=== PATIENT | female | born 1940 | race Caucasian/White ===

== ENCOUNTER 2017-04-11 07:06 | Day surgery (SDC) | payer OTHER, MEDICARE ==
[~2017-04-11] VITALS: Ht 157.5 cm; Wt 79.0 kg
[2017-04-11] VITALS (20 sets, daily range): BP systolic 96–168; BP diastolic 54–96; PULSE 65–89; TEMP 36.4–37.1; O2SAT 92–100; Ht 157.5 cm; Wt 79.0 kg
[2017-04-11] MEDS ORDERED: LIDOCAINE HCL 2% LOCAL 50ML VIAL INFIL ONE (07:07)
[2017-04-11] MEDS ORDERED: LIDOCAINE 4% INH SOLN 4 ML BTL ONE (07:07)
[2017-04-11] MEDS ORDERED: FENTANYL CITRATE INJ 50 MCG/1 ML 2 ML VIAL IV ONE ×2 (07:07→11:00)
[2017-04-11] MEDS ORDERED: MIDAZOLAM HCL 5 MG/ML 1 ML VIAL IV ONE ×2 (07:07→11:00)
[2017-04-11] MEDS ORDERED: ARFO15NE NEB (08:00)
[2017-04-11] MEDS ORDERED: VNTHFA/IN INH (08:00)
[2017-04-11] MEDS ORDERED: CARV3.122 PO (08:01)
[2017-04-11] MEDS ORDERED: LEVO1TAB33 PO (08:02)
[2017-04-11] MEDS ORDERED: PRLSR20 PO (08:02)
[2017-04-11] MEDS ORDERED: ASPI81TA28 PO (08:03)
[2017-04-11] MEDS ORDERED: LISI-461 PO (08:03)
[2017-04-11] MEDS ORDERED: ROSU5TAB PO (08:04)
[2017-04-11] MEDS ORDERED: CHOL1000 PO (08:14)
[2017-04-11] MEDS ORDERED: FENO145T26 PO (08:14)
--- NOTE | 2017-04-11 08:33 | History and Physical ---
History & Physical Date Apr 11, 2017. Chief Complaint Chronic SOB with repeat pneumonia's History of Present Illness The patient is a 77 year old female with complaints of chronic SOB with repeat pneumonia's: The patient is a 77-year-old female with moderately severe COPD based off pulmonary function test obtain 12/04/2013 with an FEV1 of 50%. She recently saw provider Wan Hernandez on 04/07/2017 in noted she had had a persistent cough with some notable dyspnea on exertion. She has been on multiple courses of antibiotics and prednisone with little relief. The cough is associated with thick yellow mucus production and she notes she is having difficulty clearing the mucus at this time. She does note some relief from her rescue inhalers but her signs and symptoms quickly return. She was denying: Fever, chills, lower extremity swelling and unintentional weight loss. On 08/17/2016 the patient had 6 minutes-walk test was noted to desaturate to 86% on room air was started on supplemental oxygen at 2 liters which maintain her sats above 93%. 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 A recent CT of the chest without contrast performed showed no significant findings. Active Problems 1. Acute bronchitis 2. Aspergillosis 3. Bronchopneumonia 4. CAD (coronary artery disease), stebbins coronary artery 5. Chronic obstructive pulmonary disease (FEV1: 50%) 6. Esophageal reflux 7. Essential hypertension 8. Hypercholesterolemia 9. Solitary pulmonary nodule 10. Staphylococcal pneumonia Surgical History 1. History of Cath Stent Placement circumflex 2009 and RCA 2. History of Craniotomy Excision Of Acoustic Neuroma 3. History of Tonsillectomy With Adenoidectomy Family History 1. Family history of Cerebral Artery Occlusion With Cerebral Infarction 2. Family history of Acute Myocardial Infarction 3. Family history of Coronary Artery Disease 4. Family history of Coronary Artery Disease 5. Family history of Coronary Artery Disease 6. Family history of Chronic Obstructive Pulmonary Disease Social History Former smoker Marital History - Never Drank Alcohol Current Meds 1. Brovana 15 MCG/2ML Inhalation Nebulization Solution; INHALE THE CONTENTS OF 1 2. Ipratropium-Albuterol 0.5-2.5 (3) MG/3ML Inhalation Solution; USE 1 UNIT DOSE IN NEBULIZER 4 TIMES 3. Carvedilol 3.125 MG Oral Tablet; TAKE 1 TABLET TWICE DAILY, WITH MORNING AND 4. Qvar 80 MCG/ACT Inhalation Aerosol Solution; INHALE 1 PUFF TWICE DAILY 5. Ventolin HFA 108 (90 Base) MCG/ACT Inhalation Aerosol Solution; 2 PUFFSEVERY 4 HOURS PRN 6. LevoFLOXacin 500 MG Oral Tablet; TAKE ONE TABLET BY MOUTH EVERY DAY; 7. PriLOSEC OTC 20 MG Oral Tablet Delayed Release; Take 1 tablet daily 8. Lisinopril 10 MG Oral Tablet; TAKE 1 TABLE DAILY 9. Crestor 5 MG Oral Tablet; TAKE 1 TABLET DAILY; 10. Tricor 145 MG Oral Tablet; TAKE 1 TABLET DAILY WITH FOOD; 11. Aspirin 81 MG TABS; TAKE 1 TABLET DAILY Allergies 1. Ibuprofen TABS 2. Contrast Media Ready-Box MISC 3. Sulfa Drugs Past Medical/Surgical History 1. Acute bronchitis 2. Aspergillosis 3. Bronchopneumonia 4. CAD (coronary artery disease), stebbins coronary artery 5. Chronic obstructive pulmonary disease (FEV1: 50%) 6. Esophageal reflux 7. Essential hypertension 8. Hypercholesterolemia 9. Solitary pulmonary nodule 10. Staphylococcal pneumonia 1. History of Cath Stent Placement circumflex 2009 and RCA 2. History of Craniotomy Excision Of Acoustic Neuroma 3. History of Tonsillectomy With Adenoidectomy Additional History Hepatic Disease: No Endocrine Disorder: No Kidney Disease: No Hypertension: No Heart Disease: Yes Bleeding Tendencies: No Infectious Diseases: Yes Allergies Coded Allergies: Sulfa Drugs (Verified Allergy, Unknown, RASH, 04/11/17) Ibuprofen (Verified Adverse Reaction, Unknown, GI UPSET, 04/11/17) Home Medications Scheduled Arformoterol Tartrate (Brovana), 1 VIAL NEB BID Aspirin (Aspirin Ec), 81 MG PO DAILY Carvedilol (Coreg), 1 TAB PO BID Cholecalciferol (Vitamin D3), 1 TAB PO DAILY Fenofibrate (Tricor ), 1 TAB PO DAILY Lisinopril (Zestril), 5 MG PO DAILY Omeprazole (Prilosec), 20 MG PO DAILY Rosuvastatin Calcium (Crestor), 1 TAB PO DAILY Scheduled PRN Albuterol Hfa (Ventolin Hfa), 2 PUFFS INH Q4 PRN for Dyspepsia Physical Examination Skin: warm/dry, no rash Eyes: normal inspection, EOMI, sclerae normal ENT: normal ENT inspection, pharynx normal Head: normocephalic, atraumatic Neck: supple, no adenopathy, trachea midline Respiratory/Chest: + pertinent finding (decreased BS bilaterally) Cardiovascular: regular rate, rhythm, no edema, + pertinent finding (1+ pitting edema bilaterall lower ext) Abdomen / GI: normal bowel sounds, non tender Back: normal inspection Extremities: normal inspection, normal range of motion Genitourinary - Female: external genitalia normal Neurologic/Psych: no motor/sensory deficits, alert, normal reflexes, oriented x 3 Diagnosis SOB with re-current pna ASA Classification: ASA Class III Plan of Treatment Recurrent pna here for bronchoscopy to evaluate recurrent pneumonias
--- NOTE | 2017-04-11 08:34 | History & Physical Bridge Note ---
H&P Re-Evaluation Bridge Note: I have examined the patient, reviewed the History & Physical and in the interval since the performance of the History & Physical I have noted the following changes of clinical significance: No changes noted
--- NOTE | 2017-04-11 09:12 | Procedure Note ---
Pre-Mod Sedation Assessment General Date of Moderate Sedation: Apr 11, 2017. Vital Signs: Vital Signs Past 12 Hours Date Time Temp Pulse Resp B/P (MAP) Pulse Ox O2 Delivery O2 Flow Rate FiO2 04/11/17 08:56 36.7 88 22 159/72 96 Room Air 04/11/17 07:50 36.7 88 22 159/72 (101) 96 Room Air Review Cardiovascular: regular rate, rhythm, no edema, no gallop, no JVD, no murmur Abdomen: normal bowel sounds, non tender, soft, no organomegaly, no pulsatile mass Lungs: chest non-tender, lungs clear, normal breath sounds Airway Class: III Pre-Sedation Airway Assessment Oral Cavity: Dentures Able to Visualize Vocal Cords: Yes Short Thick Neck: No Hx of Sleep Apnea: No Smoking Status: Former Smoker Mallampati Classification: Class III ASA Classification: Class III Procedure Planning Contraindications-for Mod Sed: None Yes Notes The planned sedation has been discussed with the patient and consent obtained. I have identified the patient, determined the appropriateness of sedation and have assessed the patient immediately prior to the procedure. All medicine(s) and interventions are by my order.
--- NOTE | 2017-04-11 09:58 | Bronchoscopy Procedure Note ---
Bronchoscopy Procedure Note Procedure: Bronchoscopy, conscious sedation, BAL YEYO Consent: Obtained through the patient placed into the chart Pre-procedural diagnosis: Chronic bronchiectasis Post-procedural diagnosis: Chronic bronchiectasis Start time: 930 End time: 949 Total time: 19 minutes Analgesia: 2% liquid lidocaine: Via nebulizer 4% gel lidocaine: Via right naris 2% liquid lidocaine: Via bronchoscopy Sedation: Versed IV: 2mg Fentanyl IV: 50 g Procedure: The Olympus video bronchoscope was used for this procedure and passed down through the right naris Right naris/posterior naris/posterior oropharynx: Anatomically within normal limits Glottis: Anatomically within normal limits Vocal cords: Proper abduction and abduction, anatomically within normal limits Subglottis/trachea/Kiara: Anatomically within normal limits, diffuse clear liquid secretions noted Right bronchial tree: Right mainstem bronchus: Anatomically within normal limits Right upper lobe: Anatomically within normal limits, large mucous plug obstructing the takeoff to the posterior subsegment Bronchus intermedius: Anatomically within normal limits Right middle lobe: Anatomically within normal limits Right lower lobe: Anatomically within normal limits Findings: diffuse clear secretions Left bronchial tree: Left mainstem bronchus: Anatomically within normal limits Left upper lobe: Anatomically within normal limits, large mucous plug obstructing the takeoff to the LB1 & LB2 Lingula: Anatomically within normal limits Left lower lobe: Anatomically within normal limits Findings: Diffuse clear secretions Bronchial alveolar lavage: Left upper lobe EBL: None Complications: None Diagnosis: Bronchiectatic changes with mucous plugs in the upper lobes but also signs consistent with chronic heart failure. Follow-up: In the [facility]
--- NOTE | 2017-04-11 10:02 | Discharge Instructions ---
Discharge Instructions Date of Service Apr 11, 2017. Admission Reason for Admission: Copd, Sob Discharge Discharge Diagnosis / Problem: chronic bronchiectasis and possible heart failure Discharge Goals Goal(s): Improve function, Diagnostic testing Activity Recommendations Activity Limitations: resume your previous activity . Current Hospital Diet Patient's current hospital diet: Discharge Diet Recommended Diet: AHA Diet (Heart Healthy) Procedures Procedures Performed: Bronchoscopy, bronchial lavage left upper lobe and conscious sedation Pending Studies Studies pending at discharge: no Medical Emergencies . Who to Call and When: Medical Emergencies: If at any time you feel your situation is an emergency, please call 911 immediately. . Non-Emergent Contact Non-Emergency issues call your: Conversion Man . . "Provider Documentation" section prepared by Emanuel Perkins. . VTE Core Measure Inpt VTE Proph given/why not?: Treatment not indicated
[2017-04-11] MEDS ORDERED: NURSING VERBAL MED ORDER ONE (10:45)
== END 2017-04-11 12:10 | disposition home or self-care (01) ==
LOC: C.ACU 07:06
PROVIDERS: ATTEND Internal Medicine Critical Care Medicine
DX: J47.9 Bronchiectasis, uncomplicated (principal); J44.9 Chronic obstructive pulmonary disease, unspecified; I25.10 Atherosclerotic heart disease of native coronary artery without angina pectoris; K21.9 Gastro-esophageal reflux disease without esophagitis; I10 Essential (primary) hypertension; E78.00 Pure hypercholesterolemia, unspecified; Z98.890 Other specified postprocedural states; Z90.89 Acquired absence of other organs; Z88.2 Allergy status to sulfonamides; Z79.82 Long term (current) use of aspirin